=== PATIENT | female | born 1985 | race African-American/Black ===

== ENCOUNTER 2018-03-10 22:35 | Emergency (ER) | payer MEDICAID ==
[~2018-03-10] VITALS: Ht 162.6 cm; Wt 72.0 kg
[2018-03-10 23:42] LABS: CLARITY URINE CLEAR (CLEAR); COLOR URINE YELLOW (YELLOW); KETONES URINE TRACE (NEGATIVE); LEUKOCYTE ESTERASE URINE NEGATIVE (NEGATIVE); NITRITE URINE NEGATIVE (NEGATIVE); OCCULT BLOOD URINE TRACE (NEGATIVE); PROTEIN URINE NEGATIVE (NEGATIVE); SPECIFIC GRAVITY URINE 1.026 (1.005-1.030)
[2018-03-11 01:44] VITALS: BP 125/72
== END 2018-03-11 01:46 | disposition home or self-care (01) ==
LOC: ER 22:35
DX: N39.0 Urinary tract infection, site not specified (principal)
CPT/HCPCS: 81003; 81025; 99283

== ENCOUNTER 2018-05-03 12:29 | Emergency (ER) | payer MEDICAID ==
[~2018-05-03] VITALS: Ht 167.6 cm; Wt 71.5 kg
[2018-05-03 16:44] LABS: BASOPHILS % 0.7 % (0.0-2.0); EOSINOPHILS % 0.3 % (0.0-5.0); HEMATOCRIT. 45.8 % (36.0-48.0); HEMOGLOBIN. 15.4 g/dL (12.0-16.0); LYMPHOCYTES % 25.9 % (20.0-50.0); MEAN CORPUSCULAR HEMOGLOBIN 31.1 pg (28.0-32.0); MEAN CORPUSCULAR VOLUME 92.6 fL (81.0-99.0); MEAN PLATELET VOLUME 10.1 fl (7.4-10.4); MONOCYTES % 7.1 % (2.0-8.0); PLATELET 301 x1000/uL (130-400); RED BLOOD CELL COUNT 4.95 mill/uL (4.2-5.4); RED CELL DISTRIBUTION WIDTH 12.9 % (11.6-14.6)
[2018-05-03 16:49] LABS: CHLORIDE 103 mEq/L (98-107)
[2018-05-03 17:00] LABS: CLARITY URINE CLEAR (CLEAR); COLOR URINE DARK YELLOW (YELLOW); KETONES URINE 3+ (NEGATIVE); LEUKOCYTE ESTERASE URINE NEGATIVE (NEGATIVE); NITRITE URINE NEGATIVE (NEGATIVE); OCCULT BLOOD URINE TRACE (NEGATIVE); PH URINE 5.5 (4.5-8.0); PROTEIN URINE TRACE (NEGATIVE); SPECIFIC GRAVITY URINE 1.029 (1.005-1.030)
[2018-05-03 18:15] VITALS: BP 119/79
== END 2018-05-03 18:41 | disposition home or self-care (01) ==
LOC: ER 12:29
DX: R42 Dizziness and giddiness (principal); R11.0 Nausea; Z90.49 Acquired absence of other specified parts of digestive tract; Z87.19 Personal history of other diseases of the digestive system
CPT/HCPCS: 36415; 80053; 81003; 81025; 83690; 85025; 99284

== ENCOUNTER 2018-08-23 19:24 | Emergency (ER) | payer MEDICAID ==
[~2018-08-23] VITALS: Ht 167.6 cm; Wt 55.0 kg
[2018-08-23 20:34] LABS: BASOPHILS % 0.4 % (0.0-2.0); EOSINOPHILS % 0.1 % (0.0-5.0); HEMATOCRIT. 42.5 % (36.0-48.0); HEMOGLOBIN. 14.4 g/dL (12.0-16.0); LYMPHOCYTES % 32.7 % (20.0-50.0); MEAN CORPUSCULAR HEMOGLOBIN 31.2 pg (28.0-32.0); MEAN CORPUSCULAR VOLUME 92.1 fL (81.0-99.0); MEAN PLATELET VOLUME 10.5 fl (7.4-10.4); MONOCYTES % 9.4 % (2.0-8.0); NEUTROPHILS % 57.4 % (40.0-76.0); PLATELET 188 x1000/uL (130-400); RED BLOOD CELL COUNT 4.61 mill/uL (4.2-5.4); RED CELL DISTRIBUTION WIDTH 14.1 % (11.6-14.6)
[2018-08-23 20:36] LABS: CHLORIDE 100 mEq/L (98-107)
[2018-08-23] MEDS ORDERED: IOHEXOL-350 100 ML BOTTLE ONE (21:42)
[2018-08-23] MEDS ORDERED: PREDNISONE 20MG TABLET PO STA (22:16)
[2018-08-23] MEDS ORDERED: ALBUTEROL (0.083%) 2.5MG/3ML NEB HHN STA (22:16)
[2018-08-23 23:14] VITALS: BP 119/82
== END 2018-08-23 23:20 | disposition home or self-care (01) ==
LOC: ER 19:24
DX: J45.909 Unspecified asthma, uncomplicated (principal)
CPT/HCPCS: 36415; 71045; 71275; 80053; 81025; 83880; 84484; 85025; 85379; 93005; 99284; J7512; Q9967